=== PATIENT | female | born 1965 | race Caucasian/White ===

== ENCOUNTER 2017-03-28 09:13 | Day surgery (SDC) | payer OTHER ==
[~2017-03-28] VITALS: Ht 154.9 cm; Wt 77.0 kg
[2017-03-28] VITALS (30 sets, daily range): BP systolic 111–159; BP diastolic 54–80; PULSE 58–79; RESP 13–20; Ht 154.9 cm; Wt 77.0 kg
[2017-03-28] MEDS ORDERED: CEFAZOLIN 2 GM/50 ML (PMX) 50 ML IVPB ONE (10:30)
[2017-03-28] MEDS ORDERED: SOD CHLORIDE 0.9% 1,000 ML IV SCH (10:30)
[2017-03-28] MEDS ORDERED: MTF1000T PO (10:38)
[2017-03-28] MEDS ORDERED: LOSA100T7 PO ×2 (10:39→10:42)
[2017-03-28] MEDS ORDERED: GLIP-95 PO (10:39)
[2017-03-28] MEDS ORDERED: AMLO-147 PO (10:43)
[2017-03-28] MEDS ORDERED: ASPI81TA3 PO (10:43)
[2017-03-28] MEDS ORDERED: CHOL100062 PO (10:46)
[2017-03-28] MEDS ORDERED: ATOR10TA65 PO (10:46)
[2017-03-28] MEDS ORDERED: PROPOFOL 20 ML ONE (12:30)
[2017-03-28] MEDS ORDERED: FENTAnyl 50 MCG/ML VIAL ONE (12:30)
[2017-03-28] MEDS ORDERED: MIDAZOLAM 1 MG/ML 2 ML INJ ONE (12:30)
[2017-03-28] MEDS ORDERED: ISOSULFAN BLUE 1% 5 ML INJ SC ONE (12:46)
[2017-03-28] MEDS ORDERED: CEFAZOLIN 1 GM INJ ONE (13:09)
--- NOTE | 2017-03-28 13:26 | RADRPT ---
PROCEDURE: XR Chest. CLINICAL INDICATION: Preoperative for right breast cancer. TECHNIQUE: Single frontal view. COMPARISON: None. FINDINGS: The lungs are clear. The heart size is normal. There is no pleural effusion. There is no pneumothorax. IMPRESSION: 1. Normal chest radiograph. RPTAT: QQ .Ezio Wilson MD, MD Date Time Electronically viewed and signed by .Ezio Wilson MD, on 03/28/2017 13:25 .R/
[2017-03-28] MEDS ORDERED: ONDANSETRON 4 MG INJ ONE (13:27)
[2017-03-28] MEDS ORDERED: DEXAMETHASONE 4 MG/ML 1 ML INJ ONE (13:27)
[2017-03-28] MEDS ORDERED: FAMOTIDINE 20 MG INJ ONE (13:27)
[2017-03-28] MEDS ORDERED: HYDROmorphONE (0.2 MG/ML) 10ML SYG IV PRN ×2 (13:30)
[2017-03-28] MEDS ORDERED: PROCHLORPERAZINE 10 MG INJ IV PRN (13:30)
[2017-03-28] MEDS ORDERED: MEPERIDINE 25 MG INJ IV PRN (13:30)
[2017-03-28] MEDS ORDERED: DIPHENHYDRAMINE 50 MG INJ IV PRN (13:30)
[2017-03-28] MEDS ORDERED: ONDANSETRON 4 MG INJ IV PRN (14:30)
[2017-03-28] MEDS ORDERED: morphine 2 MG INJ IV PRN (14:30)
[2017-03-28] MEDS ORDERED: ACETAMINOPHEN 1000MG/100ML IV 100 ML IVPB PRN (14:30)
--- NOTE | 2017-03-28 14:44 | OPR ---
DATE OF OPERATION: 03/28/2017 PREOPERATIVE DIAGNOSIS: Locally advanced right breast cancer. POSTOPERATIVE DIAGNOSIS: Locally advanced right breast cancer. PROCEDURE PERFORMED: Right partial mastectomy and axillary dissection utilizing sentinel lymph node technique. SURGEON: Golden Thomas MD SUPERVISOR CONTINGENTS: Trung Anderson MD ANESTHESIA: General. ANESTHESIOLOGIST: Ryan Foster DO INDICATIONS FOR PROCEDURE: The patient is an unfortunate 52-year-old female who noticed an enlargin g mass in her right breast. It had become quite large before she sought medical evaluation. Workup including biopsy revealed an approximately 3 cm invasive cancer. She has HER-2 negative and deemed not a candidate for neoadjuvant chemotherapy. She was counseled as to the risks versus benefits of right partial mastectomy and axillary dissection utilizing sentinel lymph node technique. She cons ented and was scheduled for surgery. DESCRIPTION OF PROCEDURE: The patient was brought to the operating theater, placed under general en dotracheal tube anesthesia. The right breast and axillary region was prepped and draped in the usua l sterile fashion. Approximately 4 cm incision was made in the right axilla. Subcutaneous tissue w as dissected with cautery down through the clavipectoral fascia. A dye-stained lymphatic was identi fied and traced to an enlarged sentinel lymph node which was highly suspicious for metastatic diseas e. Therefore, decision was made to perform axillary dissection with blunt dissection along the ches t wall. The long thoracic nerve was identified and kept out of harm's way. More superiorly, the ax illary vein and thoracodorsal neurovascular bundle was identified and kept out of harm's way. Node bearing tissue between the long thoracic nerve and thoracodorsal nerve was meticulously harvested us ing the LigaSure device. Final connective tissue attachments to the latissimus dorsi muscle were tr ansected with cautery. The specimen was sent for permanent pathologic analysis. The wound was irri gated. Minimal bleeding was controlled with cautery. A #10 flat Joce-Altamirano drain was then broug ht through the right mid axillary line, cut to size and laid within the axilla. It was secured in p lace with 2-0 nylon suture in standard fashion. The skin was then reapproximated with a 4-0 Vicryl suture in subcuticular fashion and Dermabond was applied. Attention was then directed to performing partial mastectomy. The large tumor was adjacent to the n ipple-areolar complex and at approximately the 11 o'clock location. A curvilinear incision was made directly over the mass. Subcutaneous tissue was dissected with cautery. Skin edges were elevated with skin hooks and wide circumferential dissection of the tissue associated with the mass took plac e, taking great care to ensure adequate margins. Specimen was elevated, transected, oriented, and s ent for permanent pathologic analysis. The wound was irrigated. Residual bleeding was controlled w ith cautery, and the skin was then reapproximated with 4-0 Vicryl suture in subcuticular fashion and Dermabond was applied. The patient tolerated the procedure well. The total blood loss was 50 mL. There were no complications and the patient was transported in stable condition to the [facility] where a circumferential compression dressing was applied. Dictated By: GOLDEN JAY/KAMINI Conf#: [id number] DID#: [id number]
[2017-03-28] MEDS ORDERED: hydrALAzine 20 MG INJ IV PRN (17:00)
[2017-03-28] MEDS ORDERED: GLUCOSE GEL 15 GRAM TUBE BUCCAL PRN (17:30)
[2017-03-28] MEDS ORDERED: GLUCOSE GEL 15 GRAM TUBE PO PRN ×2 (17:30)
[2017-03-28] MEDS ORDERED: DEXTROSE 50% 50 ML SYRINGE IV PRN ×2 (17:30)
[2017-03-28] MEDS ORDERED: GLUCAGON 1 MG INJ IM PRN (17:30)
[2017-03-28] MEDS: D5W-0.45 NACL + KCL 20 MEQ 1,000 ML IV SCH ×2 (17:45→23:30)
--- NOTE | 2017-03-28 20:30 | HP ---
DATE OF ADMISSION: 03/28/2017 HISTORY OF PRESENT ILLNESS: The patient is a 52-year-old female who noticed a mass in her right renetta ast. The patient's workup including biopsy revealed a 3 cm invasive cancer, HER-2 was negative and deemed not a candidate for neoadjuvant chemotherapy. The patient was evaluated by Dr. Thomas in [facility] surgery consultation and patient was brought to the hospital and underwent right partial mastect santana and axillary dissection utilizing sentinel lymph node technique for locally advanced right breas t cancer. Postoperatively the patient experienced significant pain and the patient will be admitted for further management to medical/surgical floor. PAST MEDICAL HISTORY: Includes hypertension, diabetes and hyperlipidemia. PAST SURGICAL HISTORY: The patient denies having any surgeries in the past. FAMILY HISTORY: Negative for any history of cancer. SOCIAL HISTORY: The patient lives at home with her family, patient denies any tobacco use, denies a ny alcohol use, denies any illicit drug use. ALLERGIES: NO KNOWN ALLERGIES. HOME MEDICATIONS: Include: 1. Amlodipine. 2. Aspirin. 3. Atorvastatin. 4. Vitamin D. 5. Glipizide. 6. Cozaar 7. Metformin. REVIEW OF SYSTEMS: A 12-point review of systems is negative unless what mentioned in the HPI. PHYSICAL ASSESSMENT GENERAL: Well-developed, well-nourished female currently is awake, alert. VITAL SIGNS: Temperature 98.0, pulse is 60, blood is 139/73, respiratory rate 18, oxygen saturation 97% on 2 liters nasal cannula. HEENT: Head is atraumatic, normocephalic. Pupils equal, round, reactive to light and accommodation . Oral mucosa is pink and moist. NECK: Supple, no cervical lymphadenopathy, no thyromegaly. CHEST: Status post right partial mastectomy with a dry, clean and intact dressing and right axillar y LA. Lungs clear bilaterally. There is no rhonchi, wheezes, rales noted. CARDIOVASCULAR: Normal S1, S2. No murmurs, gallops, clicks, rubs noted. ABDOMEN: Protuberant, soft, nondistended, nontender. Bowel sounds present. EXTREMITIES: There is no edema, clubbing, cyanosis. Pulses equal bilaterally 2+. SKIN: There is no rash, petechiae noted. NEUROLOGIC: The patient is awake, alert and oriented x4. No focal deficits noted. Motor strength 5/5 in all extremities. LABORATORY DATA: Prior to admission to surgery: CBC: White blood cells 7.0, hemoglobin 13.2, hemat ocrit 40.1, platelets 312. Chemistry: Glucose 123, BUN is 11, creatinine 0.47. Sodium was 142, po tassium 4.3, chloride 106, carbon dioxide 27, calcium 9.4. PTT is 26. INR is 1, PT is 10.4. ASSESSMENT AND PLAN: 1. Locally advanced right breast cancer status post right partial mastectomy and axillary dissectio n utilizing sentinel lymph node technique. Will continue Tylenol and Morphine p.r.n. for pain, Zofra n p.r.n. for nausea. Continue IV fluids. The patient last received intraoperative antibiotics. Co ntinue incentive spirometer q.1 hour while patient is awake. 2. Hypertension. We will resume patient's antihypertensive home medication, hydralazine p.r.n. for systolic blood pressure above 170. 3. Diabetes mellitus type 2. Continue patient on metformin and glyburide. NovoLog per mild algorit hm sliding scale with q.a.c. and at bedtime. 4. Hyperlipidemia, continue statin. Will continue sequential compression device for deep venous thrombosis prophylaxis. Further recomme ndations based on clinical course. Plan of care discussed with Dr. Granados. Dictated By: BECKY REYNOLDS [employer] SUPERVISOR for LANCE GRANADOS MD SR/NTS Conf#: [id number] DID#: [id number]
[2017-03-28] MEDS ORDERED: ATORVASTATIN 10 MG TAB PO SCH (21:00)
[2017-03-28] MEDS ORDERED: glipiZIDE 10 MG TAB PO SCH (21:00)
[2017-03-28] MEDS: INSULIN ASPART [NOVOLOG] 3 ML PEN SC SCH (21:56)
[2017-03-29 01:00] VITALS: BP 115/60; PULSE 71; RESP 18
[2017-03-29] MEDS: D5W-0.45 NACL + KCL 20 MEQ 1,000 ML IV SCH ×2 (02:24→15:30)
[2017-03-29 05:00] VITALS: BP 125/61; PULSE 69; RESP 20
[2017-03-29] MEDS ORDERED: metFORMIN 500 MG TAB PO SCH (08:00)
[2017-03-29 08:11] VITALS: BP 123/59; RESP 18
[2017-03-29] MEDS ORDERED: LOSARTAN 50 MG TAB PO SCH (09:00)
[2017-03-29] MEDS ORDERED: AMLODIPINE 10 MG TAB PO SCH (09:00)
[2017-03-29] MEDS ORDERED: ASPIRIN 81 MG TAB PO SCH (09:00)
[2017-03-29 09:22] LABS: ADD SCAN DIFF NO
[2017-03-29 09:26] LABS: BASOPHILS % 0.1 % (0.0-2.0); HEMATOCRIT 38.5 % (37.0-47.0); HEMOGLOBIN 13.3 g/dl (12.0-16.0); LYMPHOCYTES # 1.5 10^3/ul (0.8-2.9); LYMPHOCYTES % 11.5 % (15.0-51.0); MEAN CORPUSCULAR HEMOGLOBIN 29.6 pg (29.0-33.0); MEAN CORPUSCULAR HGB CONC 34.5 g/dl (32.0-37.0); MEAN CORPUSCULAR VOLUME 85.7 fl (82.0-101.0); MEAN PLATELET VOLUME 10.3 fl (7.4-10.4); MONOCYTE # 0.6 10^3/ul (0.3-0.9); MONOCYTES % 4.3 % (0.0-11.0); NEUTROPHIL # 11.2 10^3/ul (1.6-7.5); NEUTROPHILS % 83.7 % (39.0-77.0); PLATELET COUNT 315 10^3/UL (140-415); RED BLOOD COUNT 4.49 10^6/ul (4.20-5.40); RED CELL DISTRIBUTION WIDTH 13.2 % (11.5-14.5); WHITE BLOOD COUNT 13.4 10^3/ul (4.8-10.8)
[2017-03-29] MEDS: INSULIN ASPART [NOVOLOG] 3 ML PEN SC SCH ×2 (09:41→12:07)
[2017-03-29 09:49] LABS: CALCIUM 9.2 mg/dl (8.4-10.2); CREATININE 0.54 mg/dl (0.44-1.00); POTASSIUM 3.9 mmol/L (3.5-5.1)
--- NOTE | 2017-03-29 13:34 | PN ---
DATE: 03/29/2017 Postop day #1, operation right partial mastectomy with axillary dissection for the cancer of the renetta ast. SUBJECTIVE: Does not have any pain. No complaint. OBJECTIVE: Temperature 98, heart rate 73, respirations 18, blood pressure 123/69, saturation 96% on room air. Joce-Altamirano drain has drained overnight since operation to 7 a.m. today 80 mL serosang uineous, and from 6 a.m. until now, which is unclear 7 hours, is about 40 mL serosanguineous fluid. The patient's daughter was taught how to take care of the Joce-Altamirano drain and how to measure it. So, the patient is going to be discharged home today with a prescription for pain. Follow up with Dr. Thomas' office, they should call and make an appointment. Dictated By: KAYLA MALIK MD PS/NTS Conf#: [id number] DID#: [id number]
[2017-03-29] MEDS ORDERED: HYDR-906 PO (15:21)
--- NOTE | 2017-03-29 16:40 | RADRPT ---
Vent Rate: 66 bpm RR Interval: 0 msec NV Interval: 154 msec QRS Duration: 76 msec QT Interval: 424 msec QTC Interval: 444 msec P-R-T [place]: 58 - 44 - 50 degrees Normal sinus rhythm Cannot rule out Anterior infarct , age undetermined Abnormal ECG Electronically Signed By: Roberto Figueroa [id number]
--- NOTE | 2017-04-01 05:24 | DS ---
DATE OF ADMISSION: 03/28/2017 DATE OF DISCHARGE: 03/29/2017 FINAL DIAGNOSES: 1. Locally advanced right breast cancer status post right partial mastectomy. 2. Hypertension. 3. Diabetes. 4. Hyperlipidemia. For history and physical, please refer to the history and physical from 03/28/2017. HOSPITAL COURSE: The patient is a 52-year-old female who was diagnosed with locally advanced right breast cancer. The patient was brought to the hospital and underwent right partial mastectomy and a xillary dissection utilizing sentinel lymph node technique by Dr. Thomas. Postoperatively, the patie nt experienced significant pain and was admitted for further evaluation and management. The patient was given Tylenol and morphine p.r.n. for pain and Zofran p.r.n. for nausea. The patient also rece ived IV fluids and intraoperatively antibiotics. The patient's condition improved. The patient's p ain was well controlled, and the patient was discharged home. CONDITION ON DISCHARGE: Hemodynamically stable. ACTIVITY: As patient tolerates. DIET: 1800 ADA 2 g sodium diet. MEDICATIONS ON DISCHARGE: The patient is given prescription for Harris p.r.n. for pain. FOLLOWUP: The patient instructed to follow up with Dr. Thomas in postoperative appointment in 5 days . Interdisciplinary plan of care was established for this patient. Plan of care was discussed with Dr Pilar Granados. Dictated By: BECKY REYNOLDS DERRICK BUILDER for LANCE GRANADOS MD, SR/NTS Conf#: [id number] DID#: [id number]
[2017-04-01] MEDS ORDERED: SOD CHLORIDE 0.9% 1,000 ML IV ONE (06:00)
[2017-04-01] MEDS ORDERED: CEFAZOLIN 2 GM/50 ML (PMX) 50 ML IVPB SCH (06:00)
== END 2017-03-29 16:05 | disposition home or self-care (01) ==
LOC: SDS 09:13 → MS2 17:00 → SDS 03-29 16:05
PROVIDERS: ATTEND Surgery Surgical Oncology
DX: C50.911 Malignant neoplasm of unspecified site of right female breast (principal); C77.3 Secondary and unspecified malignant neoplasm of axilla and upper limb lymph nodes; I10 Essential (primary) hypertension; E11.9 Type 2 diabetes mellitus without complications; E78.5 Hyperlipidemia, unspecified
CPT/HCPCS: 19301; 38500; 38792; 71010; 80048; 82962; 84703; 85025; 88307; 93005; J0690; J1100; J1170; J2250; J2405; J3010; J3480; Q9968

== ENCOUNTER 2017-06-04 07:31 | Day surgery (SDC) | payer OTHER ==
[~2017-06-04] VITALS: Ht 154.9 cm; Wt 76.9 kg
[2017-06-04] VITALS (10 sets, daily range): BP systolic 108–139; BP diastolic 60–77; PULSE 64–74; RESP 16–20; Ht 154.9 cm; Wt 76.9 kg
[~2017-06-04 07:31] MED LIST: AMLO-147 PO; ASPI81TA3 PO; ATOR10TA65 PO; CHOL100062 PO; GLIP-95 PO; HYDR-906 PO; LOSA100T7 PO; MTF1000T PO
[2017-06-04] MEDS ORDERED: POLYMYXIN/BACITRACIN 1L IRRIG IRR ONE (08:00)
[2017-06-04] MEDS ORDERED: SOD CHLORIDE 0.9% 1,000 ML IV SCH (08:00)
[2017-06-04] MEDS ORDERED: CEFAZOLIN 1 GM/50 ML (PMX) 50 ML IVPB ONE ×2 (08:00→09:00)
[2017-06-04] MEDS ORDERED: HEPARIN 1000 UNITS/ML 10 ML INJ ONE (08:34)
[2017-06-04] MEDS ORDERED: LIDOCAINE 2%/EPI 30 ML INJ ONE (08:35)
[2017-06-04] MEDS ORDERED: LOSA100T7 PO (08:49)
[2017-06-04] MEDS ORDERED: MIDAZOLAM 1 MG/ML 2 ML INJ ONE (09:00)
[2017-06-04] MEDS ORDERED: FENTAnyl 50 MCG/ML VIAL ONE (09:01)
[2017-06-04] MEDS ORDERED: DIPHENHYDRAMINE 50 MG INJ ONE (09:01)
--- NOTE | 2017-06-04 10:35 | RADRPT ---
PROCEDURE: Ultrasound guidance for placement of needle in left internal jugular vein. CLINICAL INDICATION: Venous access. TECHNIQUE: Prior to the procedure, informed consent was obtained. Risks including bleeding, infection, and pneu mothorax were explained to the patient. The patient understood and was willing to proceed. A procedu ral pause was performed. The patient's name, date of , and procedure to be performed were verif ied. The central line was inserted with all elements of maximal sterile barrier technique. All of th e following were used: head covering, facial mask, sterile gown, sterile gloves, a large sterile she et, hand hygiene, and 2% chlorhexidine for cutaneous antisepsis. The left neck and anterior/superi or chest wall was prepped and draped in usual sterile fashion. Limited sonography of the left neck was then performed. Noted is a patent left internal jugular vein . Ultrasound images were recorded and stored in the patient's medical record. Following the local injection of Xylocaine, the left internal jugular vein was punctured under sonog raphic guidance with a 20-gauge needle through which a 0.018 inch floppy tip guidewire was advanced into the superior vena cava. The patient tolerated the procedure well. The remainder of the proced ure was performed and dictated under separate cover. COMPARISON: None. FINDINGS: The ultrasound images demonstrate a patent left internal jugular vein. The subsequent images demons trate the needle entering the left internal jugular vein. IMPRESSION: 1. Ultrasound guidance for a needle placement in left internal jugular vein. RPTAT: QQ .Ezio Wilson MD, Date Time Electronically viewed and signed by .Ezio Wilson MD, on 06/04/2017 10:34 .R/
--- NOTE | 2017-06-04 10:45 | RADRPT ---
PROCEDURE: FLUOROSCOPIC AND ULTRASONOGRAPHIC-GUIDED PLACEMENT OF LEFT CHEST PORT. CLINICAL INDICATION: History of right breast cancer. Venous access for chemotherapy. TECHNIQUE: INTRAPROCEDURE MEDICATIONS: PB antibiotic solution 40 cc applied topically. 1 gram Ancef intravenous ly, intra-op. IV Versed and Fentanyl per protocol. TECHNIQUE: Informed consent was obtained. The procedure, risks, benefits, complications and alternat ken were explained to the patient. Risks including bleeding, infection, and pneumothorax were expl ained. The patient understood and was willing to proceed. A procedural pause was performed. The patient's name, date of , and procedure to be performed w ere verified. The central line was inserted with all elements of maximal sterile barrier technique. All of the fol lowing were used: head covering, facial mask, sterile gown, sterile gloves, a large sterile sheet, h and hygiene, and 2% chlorhexidine for cutaneous antisepsis. The left neck and anterior/superior chest wall were prepped and draped in usual sterile fashion. Limited sonography of the left neck was then performed. Noted is a patent left internal jugular vein . Following the local injection of 1% lidocaine, the left internal jugular vein was punctured under so nographic guidance with a 20-gauge needle through which a 0.018 inch floppy tip guidewire was advanc ed into the superior vena cava with fluoroscopic guidance. The tract was dilated to 5 [place] and t he wire was then replaced with a 0.035 in Glidewire. Serial dilatation was then performed and a 7 F rench peel away sheath was introduced. A site just inferior to the clavicle in the superior anterior left chest wall was localized. One per cent lidocaine was used as local anesthesia. A transverse 3 cm incision was made utilizing a 15 blad e scalpel. Utilizing blunt dissection a subcutaneous pocket was created inferior to the incision. Th e cavity was flushed with approximately 40 cc of PB antibiotic solution. The catheter was tunneled underneath the skin from the newly created pocket to the puncture site in the neck. The central line catheter was pulled through the tract. The catheter was then advanced thr ough the sheath until the tip was positioned in the right atrium. The peel-away sheath was removed. The catheter was flushed and clamped. The catheter was then connected to the 8 [place] [employer] power port. The port was then placed i nto the pocket. Prior to closing the instrument and sponge count was verified and was correct. The s ubcutaneous tissue was closed with 3-0 Vicryl interrupted suture. The skin at the site of the pocket and in the neck was closed with 4-0 Vicryl suture in a running subcuticular technique. The port was flushed with 2000 units of heparin in 2 cc utilizing a Lynn needle. The needle was removed. A dres sing was applied. The patient tolerated procedure well. COMPARISON: None. FINDINGS: Ultrasound images were recorded and stored in the patient's medical record. 7 images of the chest we re obtained with the image intensifier. Final radiographic images demonstrate the tip of the catheter in the upper right atrium. A total of 0.1 minutes of fluoroscopy time was used. The ultrasound images demonstrate the needle entering th e jugular vein. IMPRESSION: 1. Successful ultrasonographic and fluoroscopic guided placement of left chest port. RPTAT: QQ .Ezio Wilson MD, MD Date Time Electronically viewed and signed by .Ezio Wilson MD, on 06/04/2017 10:44 .R/
[2017-06-04] MEDS ORDERED: HYDROCODONE/APAP (5/325) TAB PO PRN (11:00)
== END 2017-06-04 13:05 | disposition home or self-care (01) ==
LOC: SDS 07:31
PROVIDERS: ATTEND Internal Medicine Hematology & Oncology
DX: C50.911 Malignant neoplasm of unspecified site of right female breast (principal); I10 Essential (primary) hypertension; E11.9 Type 2 diabetes mellitus without complications; E78.5 Hyperlipidemia, unspecified
CPT/HCPCS: 36561; 76942; 82962; C1788; J0690; J1200; J1644; J2250; J3010